=== PATIENT | male | born 1980 | race Caucasian/White ===

== ENCOUNTER 2017-04-06 19:08 | Emergency (ER) | payer OTHER ==
[~2017-04-06] VITALS: Ht 185.4 cm; Wt 132.7 kg
[2017-04-06 19:53] LABS: HEMATOCRIT 44.4 % (38.0-50.0); MCH 30.8 PG (29.0-34.0); MCHC 34.9 G/DL (30.0-36.0); MCV 88.3 FL (86-99); MEAN PLAT.VOLUME 9.8 uM^3 (9.0-12.4); PLATELET COUNT 210 K/uL (156-360); RBC DIS.WIDTH-CV 11.9 % (11.8-14.6); RBC DIS.WIDTH-SD 38.3 % (39-53); RED BLOOD COUNT 5.03 M/uL (4.00-5.50); WHITE BLOOD COUNT 7.3 K/uL (4.1-10.2)
[2017-04-06 20:04] LABS: CHLORIDE 107 mEq/L (99-109); POTASSIUM 4.2 mEq/L (3.7-5.4); SODIUM 141 mEq/L (136-147)
[2017-04-06 20:06] LABS: GLUCOSE 102 mg/dL (70-99)
[2017-04-06 20:07] LABS: ANION GAP 8 MEQ/L (2-14)
[2017-04-06 20:08] LABS: TOTAL BILIRUBIN 0.3 mg/dL (0.0-1.0)
[2017-04-06 20:09] LABS: ALKALINE PHOSPHATASE 75 IU/L (3-129)
[2017-04-06 20:10] LABS: GFR ESTIMATE (CALCULATED) > 59 mL/min/
[2017-04-06 20:11] LABS: UREA NITROGEN (BUN) 14 mg/dL (9-23)
[2017-04-06 20:13] LABS: LIPASE 19 U/L (1.0-51.0)
[2017-04-06 20:17] LABS: TROP-I INTERPRETATION NEGATIVE; TROPONIN-I < 0.01 ng/mL (0.0-0.30)
[2017-04-06 23:25] LABS: TROP-I INTERPRETATION NEGATIVE; TROPONIN-I < 0.01 ng/mL (0.0-0.30)
[2017-04-06 23:47] VITALS: BP 140/90
== END 2017-04-06 23:48 | disposition home or self-care (01) ==
LOC: EME 19:08
PROVIDERS: Nurse Practitioner Family
DX: R10.13 Epigastric pain (principal)
CPT/HCPCS: 71020; 80053; 83690; 84484; 85027; 93005; 99281; 99284